=== PATIENT | male | born 1975 | race Caucasian/White ===

== ENCOUNTER 2018-04-06 09:19 | Day surgery (SDC) | payer BC, OTHER ==
[2018-04-04 16:53] VITALS: BMI 28.8
[2018-04-06] MEDS ORDERED: PATIENT'S OWN MEDICATION (NON-FORMULARY) (Hydrocodone/Acetaminophen [Norco 7.5-325 Tablet] PO PRN (10:48)
[2018-04-06] MEDS ORDERED: NAPROXEN 500 MG TABLET (FP) PO PRN (10:48)
--- NOTE | 2018-04-06 10:50 | OP ---
Operative Note - Note: Operative Date: 04/06/18 Pre-Operative Diagnosis: Left shoulder impingement syndrome & rotator cuff tear Operation: Left shoulder open: 1. Neer decompression. 2. Charles procedure. 3. Rotator cuff repair Post-Operative Diagnosis: Same as Pre-op Surgeon: Maycol Vernon Electrophysiology Nurse Practitioner: Gary Vernon Anesthesiologist/SCRUM PROJECT MANAGER: Nader De La Torre Anesthesia: Local (Interscalene block), MAC Estimated Blood Loss (mls): 50 Operative Report Dictated: Yes
[2018-04-06] MEDS ORDERED: DEXAMETHASONE SOD PHOSPHATE/PF 10 MG/ML SDV ONE (10:52)
[2018-04-06] MEDS ORDERED: MIDAZOLAM HCL 2 MG/2 ML SINGLE DOSE VIAL ONE ×2 (10:52→11:44)
[2018-04-06] MEDS ORDERED: BUPIVACAINE HCL/PF (5 MG/ML) 30 ML VIAL IJ ONE (10:52)
[2018-04-06] MEDS ORDERED: DEXAMETHASONE SOD PHOSPHATE 4 MG/1 ML VIAL ONE (11:39)
[2018-04-06] MEDS ORDERED: ONDANSETRON 4 MG/2 ML VIAL ONE (11:39)
[2018-04-06] MEDS ORDERED: ceFAZolin SODIUM 1 GM VIAL ONE (11:42)
[2018-04-06] MEDS ORDERED: PROPOFOL 20 ML ONE ×2 (12:14)
[2018-04-06] MEDS ORDERED: BENZOIN/ALOE VERA/STORAX/TOLU 58 ML BOTTLE ONE (12:42)
[2018-04-06] MEDS ORDERED: oxyCODONE HCL 5 MG TABLET PO PRN (12:58)
[2018-04-06] MEDS ORDERED: ONDANSETRON 4 MG/2 ML VIAL IVPUSH PRN (12:58)
[2018-04-06] MEDS ORDERED: LACTATED RINGERS SOLUTION 1,000 ML IV SCH (13:00)
--- NOTE | 2018-04-06 13:44 | OP ---
DATE OF OPERATION: 04/06/2018 SURGEON: Maycol Vernon MD CAMERA SUPERVISOR: Gary Vernon MD PREOPERATIVE DIAGNOSIS: Left impingement syndrome, shoulder, with rotator cuff tear. POSTOPERATIVE DIAGNOSIS: Left impingement syndrome, shoulder, with rotator cuff tear. OPERATION PERFORMED: Left near decompression, which comprised of 1. Charles excision arthroplasty, left clavicle. 2. Acromioplasty with transection of coracoacromial ligament. 3. Repair of rotator cuff. ANESTHESIA: Scalene block, conscious sedation, and general anesthesia. ANTIBIOTICS GIVEN: Kefzol 2 g OPERATION IN DETAIL: The patient was correctly identified, brought a towel placed under the inferior part of the scapula. The left lower extremity was prepped, free draped in the routine manner with Betadine scrub solution, wiped with alcohol, and DuraPrep applied. Imaging was available for intraoperative evaluation, and time -out was called. A free drape of the left upper limb performed. In a line from the tip of the acromion to the tip of the coracoid was performed. The subcutaneous tissue dissected off the muscle of deltoid. This was lifted proximally, so that a plane was developed to the superior surface of the clavicle. A Hohmann retractor was placed around the back of the clavicle and then another Hohmann placed inferiorly to lift the clavicle at the level just proximal to the AC joint. An oscillating saw was utilized to perform the excision, arthroplasty of the clavicle. This was a beveled cut about 0.5 cm of bone being resected. The deltoid was gently using a peanut. The CA ligament was identified. This was transected using a 15 blade knife, and then, Metzenbaum scissors completed the release of the ligament both proximally and distally. This enabled easy finger access into the subacromial space. It really should be noted the tight space due to the acromion. A blunt Rose was placed with the tip of the undersurface of the acromion leaving the humeral head downwards. An excision of the clavicle that was [id number] was resected to gain a very wide easy decompression with complete hoahaoism of space in the subacromial space. The administering of the deltoid was kept, remained attached to the bone bed off the clavicle as well as the acromion. The rotator cuff was inspected. The tear was found to be more posterior. Two No. 1 Vicryl sutures were placed and repaired the tear completely. Wounds were thoroughly lavaged. Closure capsule fascia and muscle 1 Vicryl, subcutaneous 1 and 2-0 Vicryl, skin with 3-0 Monocryl with Steri- Strips. No drainage utilized. Operation went well. No complications. MD JONI Mchugh/[id number] MTDD
[2018-04-06 14:29] VITALS: TEMP 97.5
[2018-04-06 14:52] VITALS: BP 128/82; PULSE 92
[2018-04-06] MEDS ORDERED: CYCLOBENZAPRINE HCL 10 MG TABLET (FP) PO SCH (22:00)
--- NOTE | 2018-04-10 15:59 | PATH ---
Surgical Pathology Report Patient Name: JUDITH BURGER [facility]. Rec. #: [id number] /Age/Gender: 1975 (Age: 43) / M Account: [id number] Location: [facility] Taken: 04/06/2018 Received: 04/06/2018 Reported: 04/10/2018 Physicians: Maycol Vernon M.D. Specimen(s) Received PORTION OF DISTAL CLAVICLE LEFT SHOULDER Clinical History Impingement syndrome left shoulder Final Diagnosis DISTAL CLAVICLE, LEFT, SHOULDER NEER DECOMPRESSION WITH IVA EXCISION: SEGMENT OF BONE AND CARTILAGE WITHOUT SIGNIFICANT PATHOLOGIC FINDINGS. Electronically Signed Glenny Vaca M.D. Gross Description Received in formalin labeled "portion of distal clavicle shoulder," is a 3.5 x 3.0 x 0.7 cm aggregate of multiple bone fragments. [employer] sections are submitted in one cassette, following decalcification. /04/09/2018 saudi04/09/2018
== END 2018-04-06 15:05 | disposition home or self-care (01) ==
LOC: FASU 09:19
PROVIDERS: ATTEND Orthopaedic Surgery Orthopaedic Surgery of the Spine
PROC: 0MN20ZZ Release Left Shoulder Bursa and Ligament, Open Approach (ICD-10-PCS; 2018-04-06)
PROC: 0LQ20ZZ Repair Left Shoulder Tendon, Open Approach (ICD-10-PCS; 2018-04-06)
PROC: 0MN20ZZ Release Left Shoulder Bursa and Ligament, Open Approach (ICD-10-PCS; 2018-04-06)
PROC: 0PBB0ZZ Excision of Left Clavicle, Open Approach (ICD-10-PCS; principal; 2018-04-06 12:00)
DX: M75.42 Impingement syndrome of left shoulder (principal); M75.122 Complete rotator cuff tear or rupture of left shoulder, not specified as traumatic
CPT/HCPCS: 88304-TC; 88311-TC; 94760

== ENCOUNTER 2021-05-19 04:20 | Day surgery (SDC) | payer BC ==
[2021-05-17 11:07] VITALS: BMI 27.2
[2021-05-19] MEDS ORDERED: PROPOFOL 20 ML ONE ×2 (07:42)
[2021-05-19] MEDS ORDERED: LIDOCAINE HCL/PF 2% SDV 5ML VIAL ONE (07:42)
[2021-05-19] MEDS ORDERED: ceFAZolin SODIUM 1 GM VIAL ONE (07:42)
[2021-05-19] MEDS ORDERED: MIDAZOLAM HCL 2 MG/2 ML SINGLE DOSE VIAL ONE (07:42)
[2021-05-19] MEDS ORDERED: LIDOCAINE HCL 1%, 10 MG/ML (20ML VIAL) ONE (07:45)
[2021-05-19] MEDS ORDERED: BUPIVACAINE HCL 50 ML ONE (07:46)
[2021-05-19] MEDS ORDERED: ceFAZolin SODIUM 1 GM VIAL IVPB ONE (08:13)
[2021-05-19] MEDS ORDERED: DEXAMETHASONE SOD PHOSPHATE 4 MG/1 ML VIAL ONE (08:19)
[2021-05-19] MEDS ORDERED: ONDANSETRON 4 MG/2 ML VIAL ONE (08:19)
[2021-05-19] MEDS ORDERED: BUPIVACAINE HCL/PF 0.5% (5MG/ML) 10 ML VIAL IJ ONE (09:07)
[2021-05-19] MEDS ORDERED: ACETAMINOPHEN 325 MG TABLET (FP) PO PRN (09:21)
[2021-05-19] MEDS ORDERED: KETOROLAC TROMETHAMINE 30 MG/1 ML VIAL IVPUSH PRN (09:21)
[2021-05-19] MEDS ORDERED: ONDANSETRON 4 MG/2 ML VIAL IVPUSH PRN (09:21)
[2021-05-19] MEDS ORDERED: oxyCODONE HCL 5 MG TABLET PO PRN (09:21)
[2021-05-19] MEDS ORDERED: LACTATED RINGERS SOLUTION 1,000 ML IV SCH (09:30)
[2021-05-19 10:57] VITALS: BP 129/80; PULSE 66; TEMP 96.9
== END 2021-05-19 11:10 | disposition home or self-care (01) ==
LOC: JASU-SURG 04:20
PROVIDERS: ATTEND Orthopaedic Surgery
PROC: 0RBN4ZZ Excision of Right Wrist Joint, Percutaneous Endoscopic Approach (ICD-10-PCS; principal; 2021-05-19 08:00)
DX: M19.031 Primary osteoarthritis, right wrist (principal); M65.88 Other synovitis and tenosynovitis, other site; S63.591A Other specified sprain of right wrist, initial encounter; X58.XXXA Exposure to other specified factors, initial encounter; Y93.9 Activity, unspecified; Y92.9 Unspecified place or not applicable; Y99.9 Unspecified external cause status
CPT/HCPCS: 94760